=== PATIENT | female | born 1970 | race Caucasian/White ===

== ENCOUNTER 2017-06-29 21:26 | Emergency (ER) | payer OTHER ==
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
[2017-06-29 21:52] VITALS: BP 130/77; PULSE 78; RESP 18; TEMP 97.8; O2SAT 99
--- NOTE | 2017-06-30 09:13 | RAD ---
PROCEDURE: Cervical Spine Radiographs. Three standard views of the cervical spine performed. Note that the examination is somewhat limited due to obscuration of the odontoid by overlying occiput in the open-mouth projection however dens is partially seen AP view with head extended kirk position. HISTORY: Pain. COMPARISON: None. FINDINGS: BONES: No acute compression fractures nor retropulsed fragments. DISC SPACES: Disc spaces are maintained. Small marginal anterior osteophyte formation noted at the C5-C6 and to a lesser degree C6-C7 and loss of the C4-C5 levels. SOFT TISSUES: Normal. No prevertebral soft tissue swelling. OTHER FINDINGS: None. IMPRESSION: No acute fractures.
== END 2017-06-29 23:06 | disposition home or self-care (01) ==
LOC: H.ER 21:26
DX: M54.2 Cervicalgia (principal)

== ENCOUNTER 2017-10-08 16:16 | Emergency (ER) | payer MEDICAID, OTHER ==
[2017-10-08 16:23] VITALS: O2SAT 100
[2017-10-08] MEDS ORDERED: Sodium Chloride 0.9% 1,000 ML IV STA (16:32)
--- NOTE | 2017-10-08 16:35 | ED PDOC ---
HPI: Abdomen Time Seen by Provider: 10/08/17 16:25 Chief Complaint (Nursing): GI Problem History Per: Patient Onset/Duration Of Symptoms: Days (2) Current Symptoms Are (Timing): Still Present Severity: Mild Pain Scale Rating Of: 2 Location Of Pain/Discomfort: Epigastric Quality Of Discomfort: Unable To Describe Associated Symptoms: Nausea, Diarrhea Exacerbating Factors: None Alleviating Factors: None Additional Complaint(s): Epigastric pain assoc with nausea and diarrhea since yesterday. No fever. No blood in stool. Past Medical History Vital Signs: Last Vital Signs Temp 97.7 F 10/08/17 16:19 Pulse 70 10/08/17 16:19 Resp 18 10/08/17 16:19 BP 135/87 10/08/17 16:19 Pulse Ox 100 10/08/17 16:35 - Medical History PMH: No Chronic Diseases - Surgical History Other surgeries: Hysterectomy - Family History Family History: States: Unknown Family Hx - Home Medications Home Medications: Ambulatory Orders Medication Instructions Recorded Sulfamethoxazole/Trimethoprim 1 tab PO BID #14 tab 02/16/16 [Bactrim DS 800 mg-160 mg] Cyclobenzaprine [Cyclobenzaprine 10 mg PO Q8H PRN #12 tab 06/29/17 HCl] Ibuprofen [Motrin Tab] 800 mg PO Q6H PRN #20 tab 06/29/17 Famotidine [Pepcid] 20 mg PO Q12 #20 tab 10/08/17 Loperamide [Loperamide HCl] 2 mg PO Q8 #10 cap 10/08/17 Ondansetron [Zofran] 4 mg PO Q8H #10 tab 10/08/17 - Allergies Allergies/Adverse Reactions: Allergies Allergy/AdvReac Type Severity Reaction Status Date / Time No Known Allergies Allergy Verified 02/15/16 23:45 Review of Systems Constitutional: Positive for: Malaise. Negative for: Fever Gastrointestinal: Positive for: Nausea, Abdominal Pain. Negative for: Diarrhea Physical Exam - Physical Exam Appears: Positive for: Non-toxic, No Acute Distress Skin: Positive for: Normal Color, Warm, DRY Cardiovascular/Chest: Positive for: Regular Rate, Rhythm Respiratory: Positive for: CNT, Normal Breath Sounds Gastrointestinal/Abdominal: Positive for: Bowel Sounds, Soft. Negative for: Tenderness Extremity: Positive for: Normal ROM Neurologic/Psych: Positive for: Alert, Oriented - Laboratory Results Result Diagrams: 10/08/17 17:20 10/08/17 17:20 - ECG O2 Sat by Pulse Oximetry: 100 Disposition - Clinical Impression Clinical Impression: Gastroenteritis - Patient ED Disposition Is Patient to be Admitted: No Counseled Patient/Family Regarding: Studies Performed, Diagnosis, Need For Followup, Rx Given - Disposition Referrals: [facility] [Outside] Disposition: Routine/Home Disposition Time: 18:35 Condition: FAIR Prescriptions: Famotidine [Pepcid] 20 mg PO Q12 #20 tab Loperamide [Loperamide HCl] 2 mg PO Q8 #10 cap Ondansetron [Zofran] 4 mg PO Q8H #10 tab Instructions: Gastroenteritis (ED) Forms: [employer] (Al[place]ian)
[2017-10-08 17:28] LABS: BASO # 0.1 K/uL (0.0-0.2); BASO % 0.6 % (0.0-2.0); EOS % 0.5 % (0.0-4.0); HEMATOCRIT 42.9 % (34.0-47.0); LYMPH % 32.6 % (20.0-40.0); MEAN CELL VOLUME 86.2 fl (81.0-99.0); MEAN CORPUSCULAR HEMOGLOBIN 28.4 pg (27.0-31.0); MEAN CORPUSCULAR HGB CONC 32.9 g/dL (33.0-37.0); MEAN PLATELET VOLUME 9.4 fl (7.2-11.7); MONO # 0.6 K/uL (0.0-0.8); MONO % 6.9 % (0.0-10.0); NEUT # 5.5 K/uL (1.8-7.0); NEUT % 59.4 % (50.0-75.0); NRBC % 0.1 % (0.0-0.0); RED CELL DISTRIBUTION WIDTH 13.2 % (11.5-14.5)
[2017-10-08 17:35] LABS: WHITE BLOOD COUNT 9.2 K/uL (4.8-10.8)
[2017-10-08 17:41] LABS: ALB/GLOB RATIO 1.4 (1.0-2.1); ALKALINE PHOSPHATASE 36 U/L (38-126); ALT/SGPT 32 U/L (9-52); AST/SGOT 22 U/L (14-36); BILIRUBIN,TOTAL 0.5 mg/dl (0.2-1.3); BLOOD UREA NITROGEN 13 mg/dl (7-17); CALCIUM 9.7 mg/dL (8.4-10.2); CARBON DIOXIDE 26 mmol/L (22-30); CHLORIDE 106 mmol/L (98-107); GFR AFRICAN-AMERICAN > 60; GLUCOSE,RANDOM 89 mg/dL (65-105); POTASSIUM 3.5 MMOL/L (3.6-5.0); SODIUM 139 mmol/l (132-148); TOTAL PROTEIN 7.3 G/DL (6.3-8.2)
[2017-10-08 19:08] VITALS: BP 134/71; PULSE 78; RESP 17; TEMP 98
== END 2017-10-08 19:08 | disposition home or self-care (01) ==
LOC: H.ER 16:16
DX: K52.9 Noninfective gastroenteritis and colitis, unspecified (principal)
CPT/HCPCS: 80053; 85025; 96374; 96375; 99283; J2405; J7040